=== PATIENT | male | born 1985 | race Caucasian/White ===

== ENCOUNTER 2017-10-04 19:33 | Emergency (ER) | payer MEDICAID ==
[~2017-10-04] VITALS: Ht 170.2 cm; Wt 96.6 kg
[2017-10-04 19:38] VITALS: BP 121/63
--- NOTE | 2017-10-04 19:45 | NUR ---
PT AMBULATED TO ER BED 4
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
--- NOTE | 2017-10-04 20:50 | NUR ---
Patient discharged with v/s stable. Written and verbal after care instructions given and explained. Patient alert, oriented and verbalized understanding of instructions. Ambulatory with steady gait. All questions addressed prior to discharge. ID band removed. Patient advised to follow up with PMD. Rx of SILVADENE CREAM, NORCO AND BACTRIM given. Patient educated on indication of medication including possible reaction and side effects. Opportunity to ask questions provided and answered.
[2017-10-04 21:00] VITALS: BP 134/92
== END 2017-10-04 20:50 | disposition home or self-care (01) ==
LOC: MED 19:33
DX: T24.012A Burn of unspecified degree of left thigh, initial encounter (principal); T31.0 Burns involving less than 10% of body surface; F17.210 Nicotine dependence, cigarettes, uncomplicated; X08.8XXA Exposure to other specified smoke, fire and flames, initial encounter; Y93.89 Activity, other specified; Y92.89 Other specified places as the place of occurrence of the external cause; Y99.8 Other external cause status
CPT/HCPCS: 99283